=== PATIENT | female | born 1990 ===

== ENCOUNTER 2019-05-29 00:29 | Inpatient (IN) ==
[2019-05-29] MEDS ORDERED: ONDANSETRON 4 MG/2 ML VIAL IV PRN ×2 (00:41→14:17)
[2019-05-29] MEDS ORDERED: BUTORPHANOL 2 MG/ML VIAL IV PRN (00:41)
[2019-05-29 01:00] LABS: Basophils % 0.3 % (0.0-0.8); Eosinophils % 0.2 % (0.00-10.9); Hematocrit 39.4 VOL% (35.7-47.0); Hemoglobin 12.3 GM/DL (12.0-16.0); Immature Granulocytes % 0.7 %; Immature Granulocytes Absolute 0.07 #; Lymphocytes # 1.9 10*3/uL (1.4-4.0); Mean Corpuscular HGB Conc 31.2 GM/DL (32-36); Mean Corpuscular Volume 87.9 FL (87-102); Mean Platelet Volume 10.9 FL (9.6-12.0); Monocytes % 6.7 % (1.7-12.7); Neutrophils % 72.1 % (38.7-73.9); Platelet Count 226 T/CUMM (130-400); Red Blood Count 4.48 MC/CUMM (3.8-5.5); Red Cell Distribution Width 14.1 % (9.3-17.3); White Blood Count 9.7 T/CUMM (4-12)
[2019-05-29 01:18] LABS: Albumin 2.5 G/DL (3.4-5.0); Bilirubin,Total 0.4 MG/DL (0.2-1.0); Calcium 9.1 MG/DL (8.5-10.1); Osmolality,Calculated 278.3 MOS/KG (273-304)
[2019-05-29] MEDS: LACTATED RINGERS 1,000 ML IV SCH ×2 (01:52→12:05)
[2019-05-29] MEDS ORDERED: AMPICILLIN INJ 2,000 MG in SODIUM CHLORIDE 0.9% 100 ML IV SCH ×2 (02:00→08:00)
[2019-05-29] MEDS ORDERED: LACTATED RINGERS 1,000 ML IV ONE (11:02)
[2019-05-29] MEDS ORDERED: CITRIC ACID/SODIUM CITRATE 30 ML UDCUP PO ONE (11:02)
[2019-05-29] MEDS ORDERED: FAMOTIDINE 20 MG/2 ML VIAL IV ONE (11:02)
[2019-05-29] MEDS ORDERED: hydrOXYzine HCL 25 MG/1 ML VIAL IM PRN (11:03)
[2019-05-29] MEDS ORDERED: diphenhydrAMINE 50 MG/1 ML VIAL IV PRN ×2 (11:03)
[2019-05-29] MEDS ORDERED: PROMETHAZINE 25 MG/1 ML VIAL IM ONE (11:03)
[2019-05-29] MEDS ORDERED: ePHEDrine 50 MG/ML AMP IV PRN (11:03)
[2019-05-29] MEDS ORDERED: NALOXONE 0.4 MG/ML VIAL IV PRN (11:03)
[2019-05-29] MEDS ORDERED: fentaNYL 2 MCG/ROPIV 0.2% EPID 100 ML EPIDURAL SCH (11:30)
[2019-05-29 13:20] LABS: Apearance,Urine CLEAR (Clear); Bilirubin,Urine Negative (Negative); Blood, Urine Negative (Negative); Glucose,Urine (UA) Negative (Negative); Ketones,Urine Negative (Negative); Mucus,Urine Occasional /LPF (Occasional); Nitrite,Urine Negative (Negative); Protein,Urine Negative; RBC,Urine <1 /HPF (0-4); Squamous Epithelial Cell,Urine Occasional /HPF (0-10); Urine Color Yellow (Yellow); Urine Specific Gravity 1.011 (1.001-1.035); Urine Urobilinogen < 2.0 EU/DL (0.2-1.0); WBC,Urine 3 /HPF (0-6)
[2019-05-29] MEDS ORDERED: miSOPROStol 200 MCG TABLET ONE (13:44)
[2019-05-29] MEDS ORDERED: METHYLERGONOVINE 0.2 MG/1 ML AMP ONE (13:45)
[2019-05-29] MEDS ORDERED: CARBOPROST TROMETHAMINE 250 MCG/ML AMP IM ONE (13:45)
[2019-05-29] MEDS ORDERED: OXYTOCIN/LR 20 UNIT/1,000 ML BAG IV ONE ×2 (14:05→14:17)
[2019-05-29] MEDS ORDERED: oxyCODONE/ACETAMINOPHEN 5-325 MG TABLET PO PRN ×2 (14:17)
[2019-05-29] MEDS ORDERED: LANOLIN 50% CREAM 0.3 OZ TUBE TOP PRN (14:17)
[2019-05-29] MEDS ORDERED: BENZOCAINE 20%/MENTHOL 0.5% SPRAY 56 GM CAN TOP PRN (14:17)
[2019-05-29] MEDS ORDERED: RHO(D) IMMUNE GLOBULIN 300 MCG SYRINGE IM ONE (14:17)
[2019-05-29] MEDS ORDERED: MEASLES/MUMPS/RUBELLA VACCINE 0.5 ML VIAL SUBCUT ONE (14:17)
[2019-05-29] MEDS ORDERED: DIPH/TET/ACEL PERT BOOSTER VACCINE 0.5 ML VIAL IM ONE (14:17)
[2019-05-29] MEDS ORDERED: HYDROCORTISONE 2.5% RECTAL CREAM 30 GM TUBE TOP PRN (14:17)
[2019-05-29] MEDS ORDERED: ACETAMINOPHEN 325 MG TABLET PO PRN (14:17)
[2019-05-29] MEDS ORDERED: WITCH HAZEL PADS 100/JAR TOP PRN (14:17)
[2019-05-29] MEDS ORDERED: BISACODYL 10 MG SUPP RECTAL PRN (14:17)
[2019-05-29] MEDS: DOCUSATE SODIUM 100 MG CAPSULE PO SCH (20:41)
[2019-05-30 06:23] LABS: Basophils % 0.4 % (0.0-0.8); Eosinophils % 0.1 % (0.00-10.9); Hematocrit 32.9 VOL% (35.7-47.0); Hemoglobin 10.5 GM/DL (12.0-16.0); Immature Granulocytes % 0.8 %; Immature Granulocytes Absolute 0.08 #; Lymphocytes % 19.2 % (21.3-54.2); Mean Corpuscular HGB Conc 31.9 GM/DL (32-36); Mean Corpuscular Volume 87.5 FL (87-102); Mean Platelet Volume 11.3 FL (9.6-12.0); Monocytes % 6.8 % (1.7-12.7); Neutrophils % 72.7 % (38.7-73.9); Platelet Count 165 T/CUMM (130-400); Red Blood Count 3.76 MC/CUMM (3.8-5.5); White Blood Count 10.6 T/CUMM (4-12)
[2019-05-30] MEDS: DOCUSATE SODIUM 100 MG CAPSULE PO SCH ×2 (09:42→20:37)
[2019-05-30] MEDS: IBUPROFEN 800 MG TABLET PO PRN (15:05)
[2019-05-31] MEDS: IBUPROFEN 800 MG TABLET PO PRN (07:45)
[2019-05-31] MEDS: DOCUSATE SODIUM 100 MG CAPSULE PO SCH ×2 (07:46→09:13)
[2019-05-31 12:25] VITALS: BP 92/55
== END 2019-05-31 14:45 | disposition home or self-care (01) | DRG 560 ==
LOC: N.LD 00:29 → N.LDOUT 00:29 → N.LD 00:33 → N.OB 16:36
PROVIDERS: ADMIT Obstetrics & Gynecology; ATTEND Obstetrics & Gynecology